=== PATIENT | male | born 2000 | race Caucasian/White ===

== ENCOUNTER 2019-03-23 04:30 | Emergency (ER) | payer SELFPAY ==
[2019-03-23] MEDS ORDERED: AZITHROMYCIN 1 GM PACKET PO ONE (05:25)
[2019-03-23] MEDS ORDERED: cefTRIAXone SODIUM 250 MG INJ ONE (05:25)
[2019-03-23] MEDS ORDERED: KETOROLAC TROMETHAMINE 60 MG/2 ML VIAL IM ONE (05:25)
[2019-04-04 08:18] LABS: APPEARANCE,URINE CLEAR (CLEAR); COLOR,URINE YELLOW (YELLOW); OCCULT BLOOD,URINE NEGATIVE (NEGATIVE); PH URINE 5.5 (5.0 - 8.0); UROBILINOGEN URINE 0.2 Eu (0.2-1.0)
== END 2019-03-23 05:38 | disposition home or self-care (01) ==
LOC: ED 04:30
DX: N45.1 Epididymitis (principal)
CPT/HCPCS: 81002; 87491; 87591; 96372; 99282; 99283; J0456; J0696; J1885